=== PATIENT | male | born 1985 ===

== ENCOUNTER 2025-04-04 21:10 | Emergency (ER) | payer SELFPAY ==
--- NOTE | 2025-04-04 21:13 | PD.EDADULT ---
ED General RME/HPI General Chief complaint: Medical Clearance Stated complaint: MEDICAL CLEARANCE Time Seen by Provider: 04/04/25 21:12 Arrival date/time: 04/04/25 21:10 CC: Medical clearance HPI patient present to the ER via [facility] 3 officers the patient is in full body restraints he is talking incessantly semibelligerent, offensive minimal foul language. Vital signs show the patient is tachycardic with a heart rate in 134. Related Data Allergies Allergy/AdvReac Type Severity Reaction Status Date / Time No Known Allergies Allergy Verified 04/04/25 21:31 Review of Systems Review of Systems Narrative Review of Systems: GEN: No fever, no chills, no weight loss EYES: No discharge, no visual changes, no pain HEENT: No ear pain, no congestion, no sore throat PULM: No shortness of breath, no cough, no congestion CV: No chest pain, no dyspnea on exertion, no palpitations GI: No nausea, no vomiting, no diarrhea, no pain, no constipation : No frequency, no urgency, no dysuria MUSC/SKEL: No joint pain, no back pain SKIN: No rash PSYCH: No hallucinations, no depression HEME/LYMPH: No easy bleeding or bruising tendencies NEURO: No weakness, no headache Past Medical History Past Medical History CARDIAC: Negative Congestive Heart Failure RESPIRATORY: Negative Chronic Obstructive Pulmonary Disease (COPD) GENITOURINARY: Negative Renal Disease ENDOCRINE: Negative Diabetes Mellitus Type 1 or Diabetes Mellitus Type 2 Social History SMOKING STATUS: Never smoker ED Exam Narrative Physical exam: [General: Hyperactive but not in any acute distress Head normocephalic HEENT: Eyes pupils are PERRLA EOMs are intact mouth pink dry membranes uvula is midline all other subsystems of HEENT are within acceptable limits Neck is supple nontender Chest equal chest rise nontender to palpation Respiratory: Clear to auscultation no wheezes crackles or rubs CV: Rate rhythm is regular no murmurs rubs or clicks Abdomen is flat, nontender no masses positive bowel sounds all 4 quadrants Back: No CVA tenderness no spinous process tenderness from cervical spine thoracic and lumbar spine Skin: Intact no petechiae rash induration ulceration or crepitus Extremities: Moving all extremity against resistance cap refill less than 2 seconds neurosensory intact Neuro: Awake alert oriented x2, person and place, Glascow coma 15 no focal deficits] Course Course Course Narrative: Patient noted to have a heart rate of 117 am comfortable discharging the patient home. Quality Measures none Orders Category Date Time Status Diazepam Inj [Valium Inj] Med 04/04/25 21:13 Discontinued 10 mg IM X1 ONE Vital Signs Vital signs: Vital Signs Temperature 98 F 04/04/25 21:19 Pulse Rate 130 H 04/04/25 21:19 Respiratory Rate 19 04/04/25 21:19 Blood Pressure 114/78 04/04/25 21:19 Pulse Oximetry (%) 98 04/04/25 21:19 Oxygen Delivery Method Room Air 04/04/25 21:19 Discharge Plan Plan Patient Disposition: HOME (Self Care) Patient condition on transfer: Stable Prescriptions/Referrals Referrals: Jeffrey Null MD [Physician] - In 1 week No Primary/Family,Physician [Primary Care Provider] - In 1 week Problem List Clinical Impression: Medical clearance for incarceration, Tachycardia Patient/Caregiver Discharge Instructions Print Language: Mauritian Stand Alone Forms: Shannan Award Info., Patient Portal Info Letter PA/JONO Supervising Physician PA/JONO Supervising Physician: Mike Ordonez ENP [facility] Clinical Information Provided by patient and law enforcement Medical Records Reviewed [facility] Meds/Rx Considered, not Ordered None Labs/Rad/Tests considered, not Ordered None Chronic Illness/Social Conditions which may negatively complicate care or outcome(s)-explain: ETOH/drugs/substance abuse EKG EKG not done Lab Interpretation Labs: none Imaging Imaging interpretation: none Medication Administration(s) Medication Administration History Discontinued Medications Diazepam (Diazepam Inj 5 Mg/Ml Vial 2 Ml) 10 mg IM X1 ONE Stop: 04/04/25 21:14 Last Admin: 04/04/25 21:34 Dose: 10 mg Documented By: EDU
[2025-04-04 21:19] VITALS: BP 114/78; PULSE 130; RESP 19; TEMP 36.6; O2SAT 98
[2025-04-04] MEDS: DIAZEPAM INJ 5 MG/ML VIAL 2 ML 10 MG IM (21:34)
[2025-04-04 21:42] VITALS: BP 130/83; PULSE 117; RESP 19; O2SAT 98
== END 2025-04-04 22:00 | disposition home or self-care (01) ==
PROVIDERS: Emergency Provider Emergency Medicine
DX: Z02.89 Encounter for other administrative examinations (principal); R00.0 Tachycardia, unspecified
CPT/HCPCS: 99282; J3360